=== PATIENT | female | born 1995 | race Caucasian/White ===

== ENCOUNTER 2020-02-24 17:20 | Emergency (ER) | payer BC ==
[~2020-02-24] VITALS: Ht 165.1 cm; Wt 66.9 kg
[2020-02-24 18:06] VITALS: BP 120/98
== END 2020-02-24 18:08 | disposition home or self-care (01) ==
LOC: ED 17:45
DX: J06.9 Acute upper respiratory infection, unspecified (principal); R51.9 Headache, unspecified; R19.7 Diarrhea, unspecified
CPT/HCPCS: 99283